=== PATIENT | female | born 1980 ===

== ENCOUNTER 2018-05-04 21:25 | Emergency (ER) | payer OTHER ==
[2018-05-04 21:34] VITALS: RESP 18
[2018-05-04] MEDS ORDERED: SODIUM CHLORIDE 0.9% 1,000 ML IV STA (21:58)
[2018-05-04] MEDS ORDERED: ACETAMINOPHEN TAB 500 MG TAB PO STA (21:59)
[2018-05-04 22:08] LABS: Basophils # (A) 0.1 k/uL (0-0.2); Basophils % (A) 1 %; Eosinophils # (A) 0.3 k/uL (0-0.7); Eosinophils % (A) 3 %; HCT 41.4 % (34.0-46.0); HGB 13.6 gm/dL (11.4-16.0); Lymphocytes # (A) 3.9 k/uL (1.0-4.8); Lymphocytes % (A) 42 %; MCH 27.5 pg (25.0-35.0); MCHC 32.8 g/dL (31.0-37.0); MCV 83.8 fL (80.0-100.0); Mean Platelet Volume 8.3; Monocytes # (A) 0.5 k/uL (0-1.0); Monocytes % (A) 5 %; Neutrophils # (A) 4.5 k/uL (1.3-7.7); Neutrophils % (A) 48 %; Platelet Count 233 k/uL (150-450); RBC 4.93 m/uL (3.80-5.40); RDW 14.9 % (11.5-15.5); WBC 9.4 k/uL (3.8-10.6)
--- NOTE | 2018-05-04 22:14 | XR ---
EXAMINATION TYPE: XR chest 2V DATE OF EXAM: 05/04/2018 COMPARISON: NONE HISTORY: Chest pain TECHNIQUE: Frontal and lateral views of the chest are obtained. FINDINGS: Heart and mediastinum are normal. Lungs are clear. Diaphragm is normal. There are chest le ads. Bony thorax is intact. IMPRESSION: Normal chest
[2018-05-04 22:26] LABS: ALT 30 U/L (9-52); AST 26 U/L (14-36); Albumin 4.6 g/dL (3.5-5.0); Alkaline Phosphatase 68 U/L (38-126); Anion Gap 12 mmol/L; Blood Urea Nitrogen 12 mg/dL (7-17); Calcium 9.6 mg/dL (8.4-10.2); Carbon Dioxide 26 mmol/L (22-30); Chloride 101 mmol/L (98-107); Glucose 85 mg/dL (74-99); Magnesium 2.1 mg/dL (1.6-2.3); Potassium 4.9 mmol/L (3.5-5.1); Sodium 139 mmol/L (137-145); Total Bilirubin 0.4 mg/dL (0.2-1.3); Total Protein 7.4 g/dL (6.3-8.2)
[2018-05-04 22:30] LABS: INR 1.1 (<1.2); Prothrombin Time 10.4 sec (9.0-12.0)
[2018-05-04 22:32] LABS: Creatine Kinase 76 U/L (30-135); Partial Thromboplastin Time 20.5 sec (22.0-30.0)
[2018-05-04 22:33] LABS: D-Dimer 1.05 mg/L FEU (<0.60)
[2018-05-04 22:45] LABS: Creatine Kinase MB <0.2 ng/mL (0.0-2.4); Troponin I <0.012 ng/mL (0.000-0.034)
--- NOTE | 2018-05-04 23:18 | CT ---
EXAMINATION TYPE: CT chest angio for PE DATE OF EXAM: 05/04/2018 COMPARISON: NONE HISTORY: Chest pain and SOB. CT DLP: 96.1 mGycm Automated exposure control for dose reduction was used. CONTRAST: CT Chest for pulmonary embolism performed with with IV Contrast, patient injected with 65ml mL of Iso rodri 370. FINDINGS: There are 3-D post processed images. The lungs are clear of infiltrate. There is no pleural effusion. There is no evidence of a pulmonary mass. Heart size is normal. There is no pericardial effusion. I see no filling defect in the pulmonar y arteries. There is no mediastinal adenopathy. There are no hilar masses. Thoracic aorta appears nor mal. Bony thorax is intact. IMPRESSION: Normal CT angiogram of the chest. No evidence of pulmonary embolism.
--- NOTE | 2018-05-05 | ED ---
Chest Pain HPI - General Chief Complaint: Chest Pain Stated Complaint: SOB Time Seen by Provider: 05/04/18 21:43 Source: patient Mode of arrival: ambulatory Limitations: no limitations - History of Present Illness Initial Comments: 37 years O female comes in with the chest pain, she said she is short-winded it hurts to take a deep breath also complaining about some dizziness and headache and chest pain been going on for about 3 days now she said she was not feeling well off and on for 2 weeks denies any fever no chills no nausea no vomiting chest pain is located on the left side of the chest and she feels that it's radiating at times to her lower belly. He has a headache now and now felt dizzy prior to coming to the ER dizziness has resolved now she denies any tobacco use no control pills at this point and chest pain gets worse with deep breaths - Related Data Home Medications Medication Instructions Recorded Confirmed Acetaminophen Tab [Tylenol Tab] 325 mg PO TID PRN 05/04/18 05/04/18 Loratadine [Claritin] 10 mg PO DAILY 05/04/18 05/04/18 Allergies Allergy/AdvReac Type Severity Reaction Status Date / Time No Known Allergies Allergy Verified 05/04/18 21:56 Review of Systems ROS Statement: Those systems with pertinent positive or pertinent negative responses have been documented in the HPI. ROS Other: All systems not noted in ROS Statement are negative. EKG Findings - EKG Comments: EKG Findings:: Him EKG is a normal sinus rhythm ventricular rate 72 [place] interval is 1:30 QRS duration is 74 QT is/QTc is 336/370 review of this EKG does not reveal any ST elevation or ST depression Past Medical History Past Medical History: No Reported History History of Any Multi-Drug Resistant Organisms: Other MDRO Date of last positivie culture/infection: 08/2017 Past Surgical History: Section Past Psychological History: No Psychological Hx Reported Smoking Status: Never smoker Past Alcohol Use History: None Reported Past Drug Use History: None Reported General Exam - General Exam Comments Initial Comments: General: The patient is awake and alert, in no distress, and does not appear acutely ill. Skin: Skin is warm and dry and no rashes or lesions are noted. Eye: Pupils are equal, round and reactive to light, extra-ocular movements are intact; there is normal conjunctiva bilaterally. Ears, nose, mouth and throat: There are moist mucous membranes and no oral lesions. Neck: The neck is supple, there is no tenderness or JVD. Cardiovascular: There is a regular rate and rhythm. No murmur, rub or gallop is appreciated. Respiratory: To auscultation bilateral, no wheezing no rhonchi no distress respiratory coley noticed Gastrointestinal: Positive tender in epigastric area positive bowel sounds no guarding no rebounds Back: There is no tenderness to palpation in the midline. There is no obvious deformity. Musculoskeletal: Normal ROM, no tenderness, There is no pedal edema. There is no calf tenderness or swelling. No cords were appreciated. Neurological: CN II-XII intact, Cranial nerves III through XII are intact. There are no obvious motor or sensory deficits. Coordination appears grossly intact. Speech is normal. Psychiatric: Cooperative, appropriate mood & affect, normal judgment. Limitations: no limitations Course Vital Signs 05/04/18 05/04/18 05/04/18 21:26 22:42 23:14 Temperature 98.9 F Pulse Rate 76 74 87 Respiratory 18 18 18 Rate Blood Pressure 114/73 127/79 107/68 O2 Sat by Pulse 98 100 99 Oximetry We'll plan reassessment noticed the d-dimer was elevated, comp his metabolic panel, troponin are normal CBC is absolutely normal because the d-dimer was elevated CT chest injury was done it was unremarkable patient had a Tylenol in the ER that took care of her headache now she is free of headache there is no neck stiffness there are no signs of any meningitis and now she feels better and dizziness has resolved.. She was advised to follow-up with the [facility] as well as chest pain is concerned she was reassured that there is no heart attack at this point is no pulmonary embolism there is no pneumothorax or pneumonia Disposition Clinical Impression: Chest pain Disposition: HOME SELF-CARE Condition: Good Instructions: Chest Pain (ED) Is patient prescribed a controlled substance at d/c from ED?: No Referrals: None,Stated [Primary Care Provider] - 1-2 days Anuel Keller MD [STAFF PHYSICIAN] - 1-2 days
[2018-05-05 00:16] VITALS: BP 107/73; PULSE 80; TEMP 97.8
== END 2018-05-05 00:16 | disposition home or self-care (01) ==
LOC: EC 21:25
DX: R07.9 Chest pain, unspecified (principal); R79.1 Abnormal coagulation profile; R51 Headache; R10.13 Epigastric pain; Z79.899 Other long term (current) drug therapy
CPT/HCPCS: 99285; 96360; 96361; 36415; 93005; 85379; 80053; 82550; 82553; 83735; 84484; 85025; 85610; 85730; 71046; 71275; Q9967